=== PATIENT | female | born 1975 | race American Indian/Alaskan Native ===

== ENCOUNTER 2017-04-18 00:28 | Emergency (ER) | payer SELFPAY ==
--- NOTE | 2017-04-18 01:09 | XRay Report ---
FINAL REPORT EXAM: XR CHEST ROUTINE 2V HISTORY: Shortness of breath TECHNIQUE: PA and lateral views the chest were submitted. FINDINGS: The lungs are clear. There is no evidence of congestion. Heart size is normal. Pleural fluid is not seen. The skeletal structures appear well maintained. IMPRESSION: No active chest disease.
[2017-04-18 01:19] LABS: Basophils % (Auto) 0.4 % (0.0-1.8); Eosinophils # (Auto) 0.2 K/mm3 (0.0-0.4); Eosinophils % (Auto) 2.9 % (0.0-4.3); Lymphocytes # (Auto) 2.5 K/mm3 (1.2-5.4); Lymphocytes % (Auto) 33.9 % (13.4-35.0); Mean Corpuscular HGB Conc 30 % (30-34); Mean Corpuscular Volume 73 fl (79-97); Monocytes # (Auto) 0.6 K/mm3 (0.0-0.8); Monocytes % (Auto) 7.9 % (0.0-7.3); Platelet Count 345 K/mm3 (140-440); Red Blood Count 3.87 M/mm3 (3.65-5.03); Red Cell Distribution Width 19.1 % (13.2-15.2)
[2017-04-18 01:32] LABS: BUN/Creatinine Ratio 22; Blood Urea Nitrogen 13 mg/dL (7-17); Calcium 8.6 mg/dL (8.4-10.2); Hemolysis Index 0
[2017-04-18 01:37] LABS: Hematocrit 28.2 % (30.3-42.9); Hemoglobin 8.4 gm/dl (10.1-14.3); Mean Corpuscular Hemoglobin 22 pg (28-32)
[2017-04-18] MEDS ORDERED: LASIX IM ONE (02:17)
[2017-04-18] MEDS ORDERED: TORADOL IM ONE (02:17)
--- NOTE | 2017-04-18 02:21 | Emergency Department Report ---
ED General Adult HPI - General Chief complaint: Abdominal Pain Stated complaint: PASSED OUT Time Seen by Provider: 04/18/17 02:01 Source: patient Mode of arrival: Ambulatory Limitations: No Limitations - History of Present Illness Initial comments: Patient is 41 years old female history of congestive heart failure. Patient presented to the ER was bilateral lower extremity swelling abdominal swelling and she stated that she feel like she is having water retention. Patient is taking Lasix 20 twice a day. Patient denied any shortness of breath, chest pain , cough or fever. - Related Data Previous Rx's Medication Instructions Recorded Last Taken Type Docusate Sodium [Colace CAP] 100 mg PO BID #60 capsule 12/30/13 Unknown Rx Ferrous Sulfate [Feosol 325 MG tab] 325 mg PO BID #60 tablet 12/30/13 Unknown Rx Furosemide [Lasix TAB] 20 mg PO 3XW #12 tablet 12/30/13 Unknown Rx Lactulose [Cephulac] 20 gm PO QDAY PRN #1 bottle 12/30/13 Unknown Rx Omeprazole [Prilosec] 20 mg PO QDAY #30 capsule. 12/30/13 Unknown Rx Potassium Chloride [K-Dur] 20 meq PO 3XW #12 tablet 12/30/13 Unknown Rx Allergies Allergy/AdvReac Type Severity Reaction Status Date / Time No Known Allergies Allergy Unverified 12/28/13 18:03 ED Review of Systems ROS: Stated complaint: PASSED OUT Other details as noted in HPI Comment: All other systems reviewed and negative Constitutional: denies: chills, fever Respiratory: denies: cough, orthopnea, shortness of breath, SOB with exertion, SOB at rest Cardiovascular: denies: chest pain, palpitations, dyspnea on exertion Gastrointestinal: denies: abdominal pain, nausea, vomiting, diarrhea Genitourinary: denies: urgency, frequency, hematuria, abnormal menses Skin: denies: rash, change in color, change in hair/nails Neurological: denies: headache, weakness, numbness, paresthesias ED Past Medical Hx - Past Medical History Previous Medical History?: Yes Hx Hypertension: No Hx Congestive Heart Failure: Yes Hx Diabetes: No Hx Asthma: No Hx COPD: No - Surgical History Past Surgical History?: Yes Additional Surgical History: hernia repair, , bilateral tubal ligation - Social History Smoking Status: Never Smoker Substance Use Type: None - Medications Home Medications: Home Medications Medication Instructions Recorded Confirmed Last Taken Type Docusate Sodium [Colace CAP] 100 mg PO BID #60 capsule 12/30/13 Unknown Rx Ferrous Sulfate [Feosol 325 MG tab] 325 mg PO BID #60 tablet 12/30/13 Unknown Rx Furosemide [Lasix TAB] 20 mg PO 3XW #12 tablet 12/30/13 Unknown Rx Lactulose [Cephulac] 20 gm PO QDAY PRN #1 bottle 12/30/13 Unknown Rx Omeprazole [Prilosec] 20 mg PO QDAY #30 capsule.dr 12/30/13 Unknown Rx Potassium Chloride [K-Dur] 20 meq PO 3XW #12 tablet 12/30/13 Unknown Rx ED Physical Exam - General Limitations: No Limitations General appearance: alert, in no apparent distress - Head Head exam: Present: atraumatic, normocephalic, normal inspection - Eye Eye exam: Present: normal appearance, PERRL - ENT ENT exam: Present: normal exam, normal orophraynx, mucous membranes moist - Neck Neck exam: Present: normal inspection, full ROM. Absent: tenderness, meningismus - Respiratory Respiratory exam: Present: normal lung sounds bilaterally. Absent: respiratory distress, wheezes, rales, rhonchi, stridor, accessory muscle use, decreased breath sounds, prolonged expiratory - Cardiovascular Cardiovascular Exam: Present: regular rate, normal rhythm, normal heart sounds - GI/Abdominal GI/Abdominal exam: Present: soft, normal bowel sounds. Absent: distended, tenderness, guarding, rebound, rigid, organomegaly, mass, bruit, pulsatile mass , hernia - Extremities Exam Extremities exam: Present: full ROM, normal capillary refill, pedal edema. Absent: tenderness, joint swelling, calf tenderness - Back Exam Back exam: Present: normal inspection, full ROM. Absent: tenderness, CVA tenderness (R), CVA tenderness (L), muscle spasm, paraspinal tenderness, rash noted - Neurological Exam Neurological exam: Present: alert, oriented X3, CN II-XII intact, normal gait - Skin Skin exam: Present: warm, intact, normal color ED Course Vital Signs 04/18/17 04/18/17 04/18/17 00:37 03:09 03:27 Temperature 98 F Pulse Rate 73 Respiratory 18 18 18 Rate Blood Pressure 140/80 O2 Sat by Pulse 99 100 Oximetry ED Medical Decision Making - Lab Data Result diagrams: 04/18/17 01:00 04/18/17 01:00 Critical care attestation.: If time is entered above; I have spent that time in minutes in the direct care of this critically ill patient, excluding procedure time. ED Disposition Clinical Impression: History of CHF (congestive heart failure), Peripheral edema Disposition: TO HOME OR SELFCARE Is pt being admited?: No Condition: Stable Instructions: Heart Failure (ED) Referrals: ANGEL KIRKPATRICK MD [Primary Care Provider] - 3-5 Days
[2017-04-18 04:47] VITALS: BP 120/64
== END 2017-04-18 04:48 | disposition home or self-care (01) ==
LOC: ED 00:28
DX: R60.0 Localized edema (principal); Z86.79 Personal history of other diseases of the circulatory system; Z98.51 Tubal ligation status; I50.9 Heart failure, unspecified
CPT/HCPCS: 36415; 71046; 80048; 85025; 93005; 93010; 96372; 99284; J1885; J1940

== ENCOUNTER 2018-04-25 02:41 | Emergency (ER) | payer OTHER ==
[2018-04-25] MEDS ORDERED: ASPIRIN PO ONE (02:49)
[2018-04-25 03:38] LABS: BUN/Creatinine Ratio 23; Blood Urea Nitrogen 16 mg/dL (7-17); Hemolysis Index 15
[2018-04-25] MEDS ORDERED: SUBLIMAZE IV ONE (03:40)
[2018-04-25] MEDS ORDERED: TORADOL IV ONE (03:40)
--- NOTE | 2018-04-25 03:48 | XRay Report ---
PROCEDURE: XR CHEST ROUTINE 2V TECHNIQUE: PA and lateral chest radiographs were obtained. HISTORY: Chest Pain COMPARISONS: None. FINDINGS: Heart: Normal. Mediastinum/Vessels: Normal. Lungs/Pleural space: Normal. Bony thorax: No acute osseous abnormality. IMPRESSION: Normal examination. This document is electronically signed by Israel Jordan MD., April 25 2018 03:45:07 AM ET
[2018-04-25 03:50] LABS: Basophils % (Auto) 0.3 % (0.0-1.8); Eosinophils # (Auto) 0.2 K/mm3 (0.0-0.4); Eosinophils % (Auto) 2.4 % (0.0-4.3); Hematocrit 28.8 % (30.3-42.9); Hemoglobin 8.9 gm/dl (10.1-14.3); Lymphocytes # (Auto) 2.6 K/mm3 (1.2-5.4); Lymphocytes % (Auto) 36.1 % (13.4-35.0); Mean Corpuscular HGB Conc 31 % (30-34); Mean Corpuscular Volume 75 fl (79-97); Monocytes # (Auto) 0.6 K/mm3 (0.0-0.8); Monocytes % (Auto) 7.7 % (0.0-7.3); Platelet Count 329 K/mm3 (140-440); Red Blood Count 3.82 M/mm3 (3.65-5.03); Red Cell Distribution Width 18.8 % (13.2-15.2)
--- NOTE | 2018-04-25 05:34 | Emergency Department Report ---
ED Chest Pain HPI - General Chief Complaint: Chest Pain Stated Complaint: CHEST PAIN Time Seen by Provider: 04/25/18 02:49 Source: patient, RN notes reviewed Mode of arrival: Wheelchair Limitations: No Limitations - History of Present Illness Initial Comments: This is a 42-year-old female who is known to this provider previously. She leaves her primary care doctor is Dr. Eisenberg. She reports that she may have a history of cardiomyopathy, and microcytic anemia. The patient reports that she is not . The patient presents to the emergency room today with a complaint of nontraumatic right-sided chest wall and breast pain. This pain started at 3:00 in the morning. It is constant. It does not radiate to the back, arms or neck. There is no vomiting or diaphoresis. There is no shortness of breath. The patient denies oral contraceptive use, recent surgeries, recent aspirin use, denies DVT, pulmonary embolus risk factors. The patient reports taking NSAIDs at home, which improved her pain. The pain increases with palpation, range of motion, and laying flat. It decreases with rest. The patient also endorses headache, present for 3 days, global, not sudden or thunderclap in nature, not maximal in intensity, and is not the most intense headache of her life. The headache is now resolved. MD Complaint: chest pain -: Gradual Onset: during rest Pain Location: right chest Pain Radiation: none Severity: moderate Severity scale (0 -10): 6 Quality: aching Consistency: intermittent Improves With: other Worsens With: other Aspirin use within the Past 7 Days: (0) No - Related Data On Oral Contraceptives: No Previous Rx's Medication Instructions Recorded Last Taken Type Docusate Sodium [Colace CAP] 100 mg PO BID #60 capsule 12/30/13 Unknown Rx Furosemide [Lasix TAB] 20 mg PO 3XW #12 tablet 12/30/13 Unknown Rx Lactulose [Cephulac] 20 gm PO QDAY PRN #1 bottle 12/30/13 Unknown Rx Omeprazole [Prilosec] 20 mg PO QDAY #30 capsule. 12/30/13 Unknown Rx Potassium Chloride [K-Dur] 20 meq PO 3XW #12 tablet 12/30/13 Unknown Rx Ondansetron [Zofran Odt] 4 mg PO Q8HR PRN #14 tab.rapdis 04/18/17 Unknown Rx traMADol [Ultram] 50 mg PO Q6HR PRN #14 tablet 04/18/17 Unknown Rx Aspirin [Aspirin BABY CHEW TAB] 81 mg PO QDAY #30 tab.chew 04/25/18 Unknown Rx Ferrous Sulfate [Feosol 325 MG tab] 325 mg PO BID #60 tablet 04/25/18 Unknown Rx Allergies Allergy/AdvReac Type Severity Reaction Status Date / Time No Known Allergies Allergy Unverified 12/28/13 18:03 Heart Score - HEART Score History: Slightly suspicious EKG: Non-specific Age: < 45 Risk factors: No known risk factors Troponin: < normal limit HEART Score: 1 - Critical Actions Critical Actions: 0-3 pts:0.9-1.7%risk of adverse cardiac event.Candidate for discharge ED Review of Systems ROS: Stated complaint: CHEST PAIN Other details as noted in HPI Constitutional: denies: fever, malaise Eyes: denies: vision change ENT: denies: hearing loss Respiratory: denies: cough Cardiovascular: chest pain Gastrointestinal: denies: nausea, vomiting Genitourinary: denies: dysuria Musculoskeletal: denies: back pain, arthralgia Skin: denies: lesions Neurological: headache. denies: weakness Psychiatric: anxiety ED Past Medical Hx - Past Medical History Hx Hypertension: No Hx Congestive Heart Failure: Yes Hx Diabetes: No Hx Asthma: No Hx COPD: No - Surgical History Additional Surgical History: hernia repair, , bilateral tubal ligation - Social History Smoking Status: Never Smoker Substance Use Type: Alcohol - Medications Home Medications: Home Medications Medication Instructions Recorded Confirmed Last Taken Type Docusate Sodium [Colace CAP] 100 mg PO BID #60 capsule 12/30/13 Unknown Rx Furosemide [Lasix TAB] 20 mg PO 3XW #12 tablet 12/30/13 Unknown Rx Lactulose [Cephulac] 20 gm PO QDAY PRN #1 bottle 12/30/13 Unknown Rx Omeprazole [Prilosec] 20 mg PO QDAY #30 capsule.dr 12/30/13 Unknown Rx Potassium Chloride [K-Dur] 20 meq PO 3XW #12 tablet 12/30/13 Unknown Rx Ondansetron [Zofran Odt] 4 mg PO Q8HR PRN #14 tab.rapdis 04/18/17 Unknown Rx traMADol [Ultram] 50 mg PO Q6HR PRN #14 tablet 04/18/17 Unknown Rx Aspirin [Aspirin BABY CHEW TAB] 81 mg PO QDAY #30 tab.chew 04/25/18 Unknown Rx Ferrous Sulfate [Feosol 325 MG tab] 325 mg PO BID #60 tablet 04/25/18 Unknown Rx ED Physical Exam - General Limitations: No Limitations General appearance: alert, in no apparent distress, anxious - Head Head exam: Present: atraumatic, normocephalic - Eye Eye exam: Present: normal appearance, EOMI. Absent: nystagmus - ENT ENT exam: Present: normal exam, normal orophraynx, mucous membranes moist, normal external ear exam - Neck Neck exam: Present: normal inspection, full ROM. Absent: tenderness, me ningismus - Respiratory Respiratory exam: Present: normal lung sounds bilaterally, chest wall tenderness, other (there is reproducible right sided chest wall tenderness. There is no breast redness, pus or streaking. Chaperoned by emergency room dice table operator Kamini Coburn). Absent: respiratory distress, wheezes, rales, rhonchi, stridor - Cardiovascular Cardiovascular Exam: Present: regular rate, normal rhythm. Absent: systolic murmur, diastolic murmur, rubs, gallop - GI/Abdominal GI/Abdominal exam: Present: soft, normal bowel sounds. Absent: distended, tenderness, guarding, rebound, rigid, pulsatile mass - Extremities Exam Extremities exam: Present: normal inspection, full ROM, other (2+ pulses noted in the bilateral upper, lower extremities. Compartments soft. No long bony tenderness. The pelvis is stable.). Absent: pedal edema, joint swelling, calf tenderness - Back Exam Back exam: Present: normal inspection, full ROM. Absent: tenderness, CVA tenderness (R), paraspinal tenderness, vertebral tenderness - Neurological Exam Neurological exam: Present: alert, oriented X3, CN II-XII intact, other (Extraocular movements intact. Tongue midline. No facial droop. Facial sensation intact to light touch in the V1, V2, V3 distribution bilaterally. 5 and 5 strength in 4 extremities.. Sensation is intact to light touch in 4 extremities.). Absent: motor sensory deficit - Psychiatric Psychiatric exam: Present: anxious - Skin Skin exam: Present: warm, dry, intact, normal color. Absent: rash ED Course Vital Signs 04/25/18 04/25/18 04/25/18 02:42 02:46 02:47 Temperature 98.7 F Pulse Rate 83 77 74 Respiratory 16 18 17 Rate Blood Pressure 136/85 138/88 Blood Pressure [Left] O2 Sat by Pulse 95 97 Oximetry 04/25/18 04/25/18 04/25/18 03:02 03:15 03:30 Temperature Pulse Rate 71 70 Respiratory 23 23 Rate Blood Pressure 138/88 151/79 151/79 Blood Pressure [Left] O2 Sat by Pulse 98 98 97 Oximetry 04/25/18 04/25/18 04/25/18 03:46 04:00 04:15 Temperature Pulse Rate 66 67 65 Respiratory 20 14 19 Rate Blood Pressure 133/67 133/67 124/74 Blood Pressure [Left] O2 Sat by Pulse 98 96 96 Oximetry 04/25/18 04/25/18 04/25/18 04:30 06:45 07:00 Temperature Pulse Rate 66 64 54 L Respiratory 16 19 17 Rate Blood Pressure 124/74 116/67 113/66 Blood Pressure [Left] O2 Sat by Pulse 97 96 97 Oximetry 04/25/18 04/25/18 04/25/18 07:10 07:29 08:00 Temperature Pulse Rate 58 L 54 L Respiratory 16 17 16 Rate Blood Pressure Blood Pressure 112/64 117/74 [Left] O2 Sat by Pulse 96 97 96 Oximetry - Reevaluation(s) Reevaluation #1: 04/25/18 05:34 Differential diagnosis, including but not limited to: GERD, gastritis, vital hernia, costochondritis, pneumonia, migraine headache, tension headache, cluster headache Assessment and plan: 42-year-old female with no pulmonary embolus or DVT risk factors, who is low risk by well's criteria, there is low risk by the JAD score, low risk by the heart score, low risk by well's criteria perc negative with reproducible chest wall pain. Patient is afebrile, with reassuring vital signs, clinically sober, and she is in no acute distress. Has a GCS of 15, with an NIH score of 0. [place] improved after supportive, symptomatic therapy. Patient at low risk for major adverse cardiac event. Repeat EKG pending, repeat troponin pending. Reevaluation #2: 04/25/18 05:39 Repeat EKG unremarkable and unchanged from prior. Reevaluation #3: 04/25/18 05:51 Care will be transferred to the oncoming ER physician, Dr. Aminta Wood, to follow-up on repeat troponin, and if negative, and no additional complaints, discharged to follow-up. JAD score - Jad Score Age > 65: (0) No Aspirin use within the Past 7 Days: (0) No 3 or more CAD Risk Factors: (0) No 2 or more Angina events in past 24 hrs: (0) No Known CAD with more than 50% Stenosis: (0) No Elevated Cardiac Markers: (0) No ST Deviation Greater than 0.5mm: (0) No JAD Score: 0 ED Medical Decision Making - Lab Data Result diagrams: 04/25/18 03:05 04/25/18 03:05 Vital Signs 04/25/18 04/25/18 04/25/18 02:42 02:46 02:47 Temperature 98.7 F Pulse Rate 83 77 74 Respiratory 16 18 17 Rate Blood Pressure 136/85 138/88 O2 Sat by Pulse 95 97 Oximetry 04/25/18 04/25/18 04/25/18 03:02 03:15 03:30 Temperature Pulse Rate 71 70 Respiratory 23 23 Rate Blood Pressure 138/88 151/79 151/79 O2 Sat by Pulse 98 98 97 Oximetry 04/25/18 04/25/18 04/25/18 03:46 04:00 04:15 Temperature Pulse Rate 66 67 65 Respiratory 20 14 19 Rate Blood Pressure 133/67 133/67 124/74 O2 Sat by Pulse 98 96 96 Oximetry 04/25/18 04:30 Temperature Pulse Rate 66 Respiratory 16 Rate Blood Pressure 124/74 O2 Sat by Pulse 97 Oximetry Lab Results 04/25/18 04/25/18 Range/Units 03:05 03:05 WBC 7.2 (4.5-11.0) K/mm3 RBC 3.82 (3.65-5.03) M/mm3 Hgb 8.9 L (10.1-14.3) gm/dl Hct 28.8 L (30.3-42.9) % MCV 75 L (79-97) fl MCH 23 L (28-32) pg MCHC 31 (30-34) % RDW 18.8 H (13.2-15.2) % Plt Count 329 (140-440) K/mm3 Lymph % (Auto) 36.1 H (13.4-35.0) % [place] % (Auto) 7.7 H (0.0-7.3) % Eos % (Auto) 2.4 (0.0-4.3) % Baso % (Auto) 0.3 (0.0-1.8) % Lymph # 2.6 (1.2-5.4) K/mm3 [place] # 0.6 (0.0-0.8) K/mm3 Eos # 0.2 (0.0-0.4) K/mm3 Baso # 0.0 (0.0-0.1) K/mm3 Seg Neutrophils % 53.5 (40.0-70.0) % Seg Neutrophils # 3.8 (1.8-7.7) K/mm3 Sodium 141 (137-145) mmol/L Potassium 3.5 L (3.6-5.0) mmol/L Chloride 103.0 (98-107) mmol/L Carbon Dioxide 25 (22-30) mmol/L Anion Gap 17 mmol/L BUN 16 (7-17) mg/dL Creatinine 0.7 (0.7-1.2) mg/dL Estimated GFR > 60 ml/min BUN/Creatinine Ratio 23 % Glucose 99 (65-100) mg/dL Calcium 9.0 (8.4-10.2) mg/dL Troponin T < 0.010 (0.00-0.029) ng/mL - EKG Data -: EKG Interpreted by Nm EKG shows normal: sinus rhythm Rate: normal - EKG Data When compared to previous EKG there are: no significant change 04/25/18 05:34 Sinus rhythm, 72 bpm, borderline left axis, high left ventricular voltage, ME interval prolonged, motion artifact, abnormal EKG, not consistent with ST elevation myocardial infarction, appears unchanged from prior EKG from 04/18/2017. - Radiology Data Radiology results: report reviewed, image reviewed X-ray of the chest is negative for acute disease. Critical care attestation.: If time is entered above; I have spent that time in minutes in the direct care of this critically ill patient, excluding procedure time. ED Disposition Clinical Impression: Chest wall pain, Microcytic anemia Disposition: TO HOME OR SELFCARE Is pt being admited?: No Does the pt Need Aspirin: No Condition: Stable Instructions: Chest Pain (ED) Additional Instructions: Take the medications as needed/directed. Follow up with any of the listed cardiology doctors within the next 3-5 days. Follow-up with the primary care doctor within the next month. Return to the emergency room right away with new pain, worsened pain, migration of pain, projectile vomiting, change in mental status, confusion, inability to speak, breathe, confusion, new or different symptoms. Prescriptions: Aspirin [Aspirin BABY CHEW TAB] 81 mg PO QDAY #30 tab.chew Ferrous Sulfate [Feosol 325 MG tab] 325 mg PO BID #60 tablet Referrals: ANGEL KIRKPATRICK MD [Staff Physician] - 3-5 Days JÚNIOR CHEN MD [Staff Physician] - 3-5 Days [facility] [Provider Group] - 3-5 Days
[2018-04-25 08:18] VITALS: BP 117/74
== END 2018-04-25 08:31 | disposition home or self-care (01) ==
LOC: ED 02:41
DX: R07.89 Other chest pain (principal); D50.9 Iron deficiency anemia, unspecified; I50.9 Heart failure, unspecified; Z98.51 Tubal ligation status
CPT/HCPCS: 36415; 71046; 80048; 84484; 85025; 93005; 93010; 96374; 96375; 99284; J1885; J3010